=== PATIENT | male | born 1970 | race Two or more races ===

== ENCOUNTER 2016-08-17 06:40 | Day surgery (SDC) | payer BC ==
[~2016-08-17] VITALS: Ht 162.6 cm; Wt 77.1 kg
[~2016-08-17 06:40] MED LIST: MOTRIN 400MG.400 MG PO
--- NOTE | 2016-08-17 09:46 | Anesthesia Record ---
Anesthesia Record Part I Total IV fluids: 900 EBL (ml): 10 Urine Output: 0 (NO KRAFT) Units of blood given: 0 B/P: 112/70 % SaO2: 96 Pulse: 70 Resps: 16 Temp: 97.5 Patient is: Awake, Stable Stable to PACU at: 0935 (IN SDS) at 0945
--- NOTE | 2016-08-17 09:46 | Anesthesia Record ---
Anesthesia Record Part II Discharge time: 1005 Destination: HOME PACU nurse assessment review? Yes Patient is: Awake, Stable Anesthesia complications? No at 0972
[2016-08-17 10:37] VITALS: BP 114/82
--- NOTE | 2016-08-17 12:57 | Operative Note ---
Removal of Neoplasm Date of procedure: 08/17/16 Pre-op diagnosis: 1.Neoplasm forehead 1.5cm 2.neoplasm scalp 2.5cm Post-op diagnosis: Same Surgeon: Serge Oliva Anesthesia type: Lo-Mac Description of procedure: With the patient under a local Daniel anesthesia having been given 1 g of Ancef and 12 mg of Decadron the face and scalp was prepped and draped. There was a lesion on the forehead measuring 1.5 cm and the lesion on the scalp measuring 2.5 cm. The perilesional areas were infiltrated with a total of 7 mL of 2 percent lidocaine containing epinephrine. An incision was marked out over the lesion on the forehead and the scalp was moderately vascular and all bleeding was stopped with bipolar cautery. The lesion was identified overlying the periosteum of the skull and it turned out to be a soft tissue neoplasm measuring 1.5 cm. It was removed in entirety and submitted. A tissue rearrangement geometric plastic repair was done with interrupted 5-0 Vicryl sutures and 5-0 nylon sutures. A Dermabond dressing was applied. An incision was made over the lesion on the scalp the lesion was once again identified deep of to the scalp overlying the periosteum it had the appearance of a soft tissue neoplasm measured which measured 2.5 cm the neoplasm was mobilized in entirety. Using sharp and blunt dissection and removed in entirety and submitted. Bleeding was stopped with bipolar cautery blood loss for all of procedure was less than 10 mL. Flaps were elevated and a tissue rearrangement geometric plastic repair was done with interrupted 5-0 Vicryl sutures and 4-0 nylon sutures a Dermabond dressing was applied. Patient was sent to recovery in good general condition. EBL (ml): 3 Specimens obtained: Same as above at 1257
== END 2016-08-17 10:20 | disposition home or self-care (01) ==
LOC: SDC 06:40
PROVIDERS: Otolaryngology
PROC: 0HB1XZX Excision of Face Skin, External Approach, Diagnostic (ICD-10-PCS; 2016-08-17)
PROC: 0HB0XZX Excision of Scalp Skin, External Approach, Diagnostic (ICD-10-PCS; principal; 2016-08-17 10:00)
DX: D49.2 Neoplasm of unspecified behavior of bone, soft tissue, and skin (principal)